=== PATIENT | male | born 1950 | race Caucasian/White ===

== ENCOUNTER 2022-11-01 09:10 | Day surgery (SDC) | payer OTHER, SELFPAY ==
[2022-11-01 09:29] VITALS: BMI 35.1
[2022-11-01] MEDS: LACTATED RINGERS 1,000 ML 200 ML IV (09:37)
[2022-11-01 09:43] VITALS: BP 187/106; PULSE 104; RESP 19; TEMP 36.9; O2SAT 96
--- NOTE | 2022-11-01 10:20 | PM.HP.1 ---
History of Present Illness History of Present Illness Date Patient Seen: 11/01/22 Time Patient Seen: 10:20 Chief complaint: Colonoscopy Narrative: The patient presents for colorectal screening. They have never had any previous examination for such. No personal or family history of colon cancer. On further history denies any recent gastrointestinal symptoms. No nausea, vomiting, abdominal pain, loss of appetite, unexplained weight loss, change in bowel habits, or blood per rectum. [facility] Social History Smoking Status: Never smoker alcohol intake: never Meds Home Medications and Allergies Allergies Allergy/AdvReac Type Severity Reaction Status Date / Time No Known Drug Allergies Allergy Verified 11/01/22 09:28 Exam Vital Signs (past 8 hours): - 11/01/22 09:43 Temperature 98.5 F Pulse Rate 104 H Respiratory Rate 19 Blood Pressure 187/106 H Pulse Oximetry 96 Oxygen Delivery Method Room Air Oxygen Delivery Method Room Air Narrative Exam Narrative: General adult man alert oriented no acute distress Assessment & Plan Assessment & Plan narrative: The patient requires colorectal screening and colonoscopy is recommended. Technical details were discussed. Risks, benefits, alternatives explained. Risks including but not limited to myocardial infarction, aspiration, bleeding, pain, missed lesion, incomplete examination, need for further radiographic studies, colonic perforation, and need for major abdominal surgery were discussed. All questions were answered to their satisfaction, and they are in agreement with this plan.
[2022-11-01 10:41] VITALS: BP 114/76; PULSE 83; RESP 12; TEMP 36.3; O2SAT 91
[2022-11-01 10:45] VITALS: BP 114/76; PULSE 78; RESP 18; O2SAT 93
--- NOTE | 2022-11-01 10:45 | PM.OP.COLON ---
Operative Date/Time/Diagnoses Date of procedure: 11/01/22 Time of procedure: 10:45 Pre-op diagnosis: Colorectal screening Post-op diagnosis: same Procedure & Clinicians Study performed: Colonoscopy Same procedure as scheduled: Yes Indications: Colorectal screening Surgeon: Ulysses Quintana Procedure Notes Procedure in detail: The history and physical was performed/updated and the patient is ASA class is 2. The procedure was discussed in detail with the patient. Potential risks complications including infection, bleeding, missed diagnosis, perforation, need for surgery, and were explained. Their questions were answered and informed consent was obtained. Patient was brought to the procedure room and placed standard monitoring equipment. The patient's vital signs were monitored continuously throughout the entire procedure. Prior to starting time-out was performed. The patient was placed in the left lateral recumbent position. Procedural sedation was administered by anesthesia. Examination began with a thorough inspection of the perianal area there was no evidence of fissures, fistulae, external hemorrhoids or cutaneous malignancy. The colonoscopy scope was then placed into the anal canal and was advanced to the cecum, which was identified by the ileocecal valve, the appendiceal orifice and the confluence of the taenia. The scope was then slowly withdrawn examining colon thoroughly in all directions, irrigating it of any residual stool. No masses or polyps. Diverticulosis within the sigmoid colon. The patient tolerated the procedure well. They will be discharged once criteria are met. The prep was of fair quality. The withdrawl time was 6 minutes. Specimen(s): none sent Impression: Diverticulosis. Otherwise normal colonoscopy Post-procedure Recommendations: High fiber diet Plan for aftercare: No further colonoscopy necessary unless symptomatic Disposition: same day surgery
[2022-11-01 10:50] VITALS: BP 128/83; PULSE 78; RESP 13; TEMP 36.4; O2SAT 94
[2022-11-01 10:56] VITALS: BP 142/95; PULSE 80; RESP 15; O2SAT 95
[2022-11-01 11:11] VITALS: BP 148/96; PULSE 76; RESP 18; TEMP 36.4; O2SAT 95
== END 2022-11-01 11:24 | disposition home or self-care (01) ==
PROVIDERS: Family Provider Physician Assistant; PCP Physician Assistant; Referring Provider Surgery; Visit Provider Surgery
PROC: 0DJD8ZZ Inspection of Lower Intestinal Tract, Via Natural or Artificial Opening Endoscopic (ICD-10-PCS; CPT 45378; principal; 2022-11-01 10:15)
DX: Z12.11 Encounter for screening for malignant neoplasm of colon (principal); K57.30 Diverticulosis of large intestine without perforation or abscess without bleeding
CPT/HCPCS: G0121; J2704

== ENCOUNTER → 2023-07-20 09:08 | Outpatient (CLI) | payer MEDICARE, SELFPAY ==
[2023-07-20 10:22] LABS: Hemoglobin A1C% w Est Avg Glu 11.2 % (4.0-6.0)
[2023-07-20 13:31] LABS: TSH w/ Reflex to FT4 3.69 uIU/mL (0.47-4.68)
== END ==
PROVIDERS: Family Provider Physician Assistant; PCP Student in an Organized Health Care Education/Training Program; Referring Provider Student in an Organized Health Care Education/Training Program; Visit Provider Student in an Organized Health Care Education/Training Program
DX: R73.01 Impaired fasting glucose (principal); R79.89 Other specified abnormal findings of blood chemistry
CPT/HCPCS: 36415; 83036; 84443